=== PATIENT | female | born 1950 | race Caucasian/White ===

== ENCOUNTER 2018-06-01 16:00 | Emergency (ER) | payer BC, OTHER ==
--- NOTE | 2018-06-01 16:20 | PDOC ---
History of Present Illness - General History Source: Patient Exam Limitations: No Limitations - History of Present Illness Initial Comments: 68 yo F w a pmh of HCL presents to the ER after scraping the tip of her right pointer finger with a kitchen knife when she was preparing food in the kitchen. She came to the ER because she couldn't get it to stop bleeding after a few minutes. She has not had her tetanus updated in the past ten years. She states she has full strength, sensation, and range of motion in her finger. Denies fevers, chills, infections, headache, blurry vision, weakness, numbness, tingling, chills, n/v/d/c, cp, sob, dysuria, freq, urgency, abd or back pain. PCP: Daryl reynolds PSH: Eye surgery as an infant Allergies: Latex, feta cheese Social Hx: Denies smoking, drinking, or other substance usage. <Srinivasan Huddleston - Last Filed: 06/01/18 17:15> <Linn Noriega - Last Filed: 06/01/18 17:17> - General Chief Complaint: Laceration Stated Complaint: LEFT MIDDLE FINGER CUT Time Seen by Provider: 06/01/18 16:19 Past History <Srinivasan Huddleston - Last Filed: 06/01/18 17:15> <Linn Noriega - Last Filed: 06/01/18 17:17> - Past Medical History Allergies/Adverse Reactions: Allergies Allergy/AdvReac Type Severity Reaction Status Date / Time latex Allergy Mild Verified 06/01/18 16:14 FETA CHEESE Allergy Unknown Uncoded 06/01/18 16:14 Home Medications: Ambulatory Orders Atorvastatin Ca [Lipitor] 10 mg PO HS 06/01/18 Calcium Carbonate/Vitamin D3 [Calcium 600 + Vit D Tablet] 1 each PO DAILY Multivit-Min/Iron/Folic/Lutein [Centrum Silver Women Tablet] 1 each PO DAILY 01/09 Tensed-3/Dha/Epa/Fish Oil [Fish Oil Conc 1,000 mg Softgel] 1,000 mg PO DAILY 01/09 Review of Systems - Review of Systems Able to Perform ROS?: Yes Comments:: CONSTITUTIONAL: Absent: fever, no chills, no fatigue EYES: Absent: visual changes ENT: Absent: ear pain, no sore throat CARDIOVASCULAR: Absent: chest pain, no palpitations RESPIRATORY: Absent: cough, no SOB GI: Absent: abdominal pain, no nausea, no vomiting, no constipation, no diarrhea GENITOURINARY: Absent: dysuria, no frequency, no hematuria MUSKULOSKELETAL: Absent: back pain, no arthralgia, no myalgia SKIN: Absent: rash NEURO: Absent: headache <Srinivasan Huddleston - Last Filed: 06/01/18 17:15> *Physical Exam - Physical Exam Comments: RIGHT 2ND FINGER: There is a small 1x1 cm abrasion with active bleeding and the abrasion is TTP. Patient has full sensation, strength, and ROM. No neurovascular deficits. GENERAL: Well-appearing, well-nourished. No apparent distress. HEENT: Normocephalic, atraumatic. PERRL, EOM intact. CARDIOVASCULAR: Normal S1, S2. Regular rate and rhythm. PULMONARY: No evidence of respiratory distress. Lungs clear to auscultation bilaterally. No wheezing, rales or rhonchi. ABDOMEN: Soft, non-distended, non-tender. EXTREMITIES: Normal ROM in all four extremities. SKIN: Warm, dry. No rash NEUROLOGICAL: No focal neurological deficits. <Srinivasan Huddleston - Last Filed: 06/01/18 17:15> - Vital Signs Last Vital Signs Temp Pulse Resp BP Pulse Ox 98.0 F 70 16 114/90 100 06/01/18 16:13 06/01/18 16:13 06/01/18 16:13 06/01/18 16:13 06/01/18 16:13 <Linn Noriega - Last Filed: 06/01/18 17:17> Moderate Sedation - Procedure Monitoring Vital Signs: Procedure Monitoring Vital Signs Temperature 98.0 F 06/01/18 16:13 Pulse Rate 70 06/01/18 16:13 Respiratory Rate 16 06/01/18 16:13 Blood Pressure 114/90 06/01/18 16:13 O2 Sat by Pulse Oximetry (%) 100 06/01/18 16:13 <Linn Noriega - Last Filed: 06/01/18 17:17> Procedures - Laceration/Wound Repair Left Finger Wound Length: to 2.5 cm Wound Explored: clean Wound's Depth, Shape: superficial Irrigated w/ Saline: Yes Betadine Prep: No Wound Debrided: minimal Wound Repaired With: Dermabond Layer Closure: No Sterile Dressing Applied: Yes (bandaid) Splint Applied: No <NoriegaLinn Agnes - Last Filed: 06/01/18 17:17> ED Treatment Course - Medications Given in the ED: ED Medications Discontinued Medications Generic Name Dose Route Start Last Admin Trade Name Freandrea PRN Reason Stop Dose Admin Diphtheria/Tetanus/Acell Pertussis 0.5 ml 06/01/18 16:28 06/01/18 16:55 Boostrix - IM 06/01/18 16:29 0.5 ml .ONCE ONE Administration <LeannLinn Agnes - Last Filed: 06/01/18 17:17> Medical Decision Making - Medical Decision Making 68 yo F w a pmh of HCL presents to the ER after scraping the tip of her right pointer finger with a kitchen knife when she was preparing food in the kitchen. She came to the ER because she couldn't get it to stop bleeding after a few minutes. She has not had her tetanus updated in the past ten years. She states she has full strength, sensation, and range of motion in her finger. - VSS DDx IBNLT: Lac vs abrasion, tetanus, cellulitis, neurodeficit. Plan: Surgicell to achieve hemostat, update tetanus, Dermabond, DC. <Srinivasan Huddleston - Last Filed: 06/01/18 17:15> *DC/Admit/Observation/Transfer - Discharge Dispostion Decision to Admit order: No <Srinivasan Huddleston - Last Filed: 06/01/18 17:15> <Linn Noriega - Last Filed: 06/01/18 17:17> Diagnosis at time of Disposition: Abrasion - Discharge Dispostion Disposition: HOME Condition at time of disposition: Good - Referrals Referrals: Daryl Torre [Primary Care Provider] - - Patient Instructions Printed Discharge Instructions: DI for Laceration Repair With Dermabond, DI for Abrasion Additional Instructions: You came into the ER with an abrasion. We used dermabond to stop the bleeding. Come back to the ER if you start to experience any signs of infection such as pain, fevers, redness, chills, or any other new or worsening concerns. Make sure to schedule a follow up Appt with your PCP in the next 3 to 5 days to make sure your wound is getting better and you are being taken care of. Thank you for coming to the [facility] ED. We hope you feel better soon! Print Language: TAMAZIGHT - Post Discharge Activity
--- NOTE | 2018-06-01 16:25 | PDOC ---
Attending Attestation - Resident Resident Name: KrystenbarbaraSrinivasan - ED Attending Attestation I have performed the following: I have examined & evaluated the patient, The case was reviewed & discussed with the resident, I agree w/resident's findings & plan - HPI HPI: 06/01/18 16:24 68 YOF presenting with left middle finger superficial avulsion of skin while cutting carrots with sharp knife bleeding noted, +compression on with gauze with some improvement. no pain, weakness or paresthesias. Tdap last <9 years ago. 06/01/18 16:55 - Physicial Exam PE: 06/01/18 17:12 General: NAD, well appearing Vascular: 2+ radialis pulses symmetric and equal. Neuro: distal heddler strength 5/5. sensation grossly intact in median/radial/ ulnar distribution. MSK: soft compartments, Cap refill <2 sec. 2+ radialis pulses bilaterally and symmetric. FDP/FDS intact. no joint tenderness. FROM. Skin: color normal color, warm and well perfused. left middle finger distal pulp with superficial skin avulsion, +triangular shaped, mild bleeding - Medical Decision Making 06/01/18 17:13 hpi as documented, VS wnl. reviewed. tetanus up dated area compressed, then applied surgicel with continued bleeding. then put on a small tourniquet, applied topical dermabond with improvement. area clean and dry , NVI. expectant management should fall off in 1 week. wound care instructions provided, monitor for fever/chills, redness, pain , swelling, malodor, s/s infection. no abx to dermabonded area. maintain bandaid to cover area.. Pt to be discharged in stable condition. Patient and family made aware of impression and plan, return precautions discussed (including but not limited to worsening pain or symptoms), fevers, or signs of infection, chest pain, respiratory distress, inability to tolerate oral intake, dehydration, syncope, or neurologic changes). Follow up with PMD and/or specialist as recommended, follow up information provided, take medications as instructed for duration of time. continue with supportive care, avoid triggers and precipitants. Patient does not suffer from an acute life-threatening medical condition at this time she is safe for outpatient follow-up.
[2018-06-01 16:28] VITALS: BP 114/90; PULSE 70; TEMP 98; BMI 22.1
[2018-06-01] MEDS ORDERED: DIPHTH,PERTUSS(ACELL),TET 0.5 ML DISP.SYRIN IM ONE ×2 (16:28→16:47)
== END 2018-06-01 17:19 | disposition home or self-care (01) ==
LOC: FER 16:00
PROC: 3E0234Z Introduction of Serum, Toxoid and Vaccine into Muscle, Percutaneous Approach (ICD-10-PCS; principal; 2018-06-01)
PROC: 0HQGXZZ Repair Left Hand Skin, External Approach (ICD-10-PCS; 2018-06-01)
DX: S61.213A Laceration without foreign body of left middle finger without damage to nail, initial encounter (principal); W26.0XXA Contact with knife, initial encounter; Y93.G1 Activity, food preparation and clean up; Y92.89 Other specified places as the place of occurrence of the external cause
CPT/HCPCS: 90715; 99281-25

== ENCOUNTER 2019-12-17 13:52 | Emergency (ER) | payer OTHER, BC ==
[2019-12-17 13:59] VITALS: BP 125/68; PULSE 55; TEMP 97; BMI 22.9
[2019-12-17] MEDS ORDERED: DIPHTH,PERTUSS(ACELL),TET 0.5 ML DISP.SYRIN IM ONE ×2 (14:50→14:51)
--- NOTE | 2019-12-17 15:00 | PDOC ---
History of Present Illness - General Chief Complaint: Injury Stated Complaint: SLIP AND FALL Time Seen by Provider: 12/17/19 14:09 History Source: Patient Exam Limitations: No Limitations - History of Present Illness Initial Comments: 12/17/19 15:00 Patient is a 69-year-old female with a history of hyperlipidemia presents to the ED after a trip and fall while going for a walk with her earlier today. Patient states that she tripped over uneven pavement and landed on her bilateral hands and knees, and hitting her chin on the ground. She denies any LOC. She remembers the entire fall. She denies any visual changes, numbness, tingling, dizziness, chest pain, shortness of breath. She denies any anticoagulation. The patient is unsure of her last tetanus booster. Past History - Medical History Allergies/Adverse Reactions: Allergies Allergy/AdvReac Type Severity Reaction Status Date / Time latex Allergy Mild Verified 12/17/19 13:59 FETA CHEESE Allergy Unknown Uncoded 12/17/19 13:59 Home Medications: Ambulatory Orders Atorvastatin Ca [Lipitor] 10 mg PO HS 06/01/18 Calcium Carbonate/Vitamin D3 [Calcium 600 + Vit D Tablet] 1 each PO DAILY 06/01/18 Multivit-Min/Iron/Folic/Lutein [Centrum Silver Women Tablet] 1 each PO DAILY 06/01/18 [place]-3/Dha/Epa/Fish Oil [Fish Oil Conc 1,000 mg Softgel] 1,000 mg PO DAILY 06/01/18 COPD: No - Psycho-Social/Smoking History Smoking History: Never smoked - Substance Abuse Hx (Audit-C & DAST Scrn) How often the patient has a drink containing alcohol: Never Score: In Men: 4 or > Positive; In Women: 3 or > Positive: 0 Screen Result (Pos requires Nsg. Audit-10AR): Negative Review of Systems - Review of Systems Comments:: 12/17/19 14:59 - Review of Systems Able to Perform ROS?: Yes Constitutional: No: Fever, Chills, Loss of Appetite, Night Sweats, Weakness HEENTM: No: Eye Pain, Vision changes, Ear Pain, Throat Pain, Throat Swelling, Mouth Pain, Difficulty Swallowing; positive: Chin laceration, positive bilateral TMJ pain Respiratory: No: Cough, Shortness of Breath, Wheezing, Sputum Production Cardiac (ROS): No: Chest Pain, Chest Tightness, Palpitations, Irregular Heart Beat, Edema ABD/GI: No: Nausea, Vomiting, Abdominal Pain, Diarrhea : No Dysuria, No Hematuria, No Frequency, No Urgency, No Vaginal Discharge/Pain, No Penile Discharge/Pain Musculoskeletal: No: Muscle Pain, Back Pain, Joint Pain, Muscle Weakness, Neck Pain; positive: Right knee pain and abrasion Integumentary: No: Lesions, Rash; positive: Multiple abrasions Neurological: No: Headache, Numbness, Tingling, Weakness, Speech Difficulties; positive: Minor head injury *Physical Exam - Vital Signs Last Vital Signs Temp Pulse Resp BP Pulse Ox 97 F L 55 L 18 125/68 99 12/17/19 13:54 12/17/19 13:54 12/17/19 13:54 12/17/19 13:54 12/17/19 13:54 - Physical Exam 12/17/19 14:57 - Physical Exam General Appearance: Nourished, Appropriately Dressed, No Distress HEENT: EOMI, Normal Voice, No Pharyngeal Erythema, No Muffled/Hoarse voice, No Tonsillar Exudate, No Tonsillar Erythema, No Nasal Congestion, No Rhinorrhea, Hearing Grossly Normal, TMs Normal, No TM Bulging, No TM Dullness, No TM Eryth vamshi; 2 cm irregular gaping laceration of the chin with minimal active bleeding. No sign of foreign body. Tenderness over the bilateral TMJ to palpation with opening and closing the jaw. No septal hematoma or hemotympanum appreciated. EOMI without pain bilaterally. No denney sign or raccoon eyes appreciated Neck: Supple, No Lymphadenopathy (R), No Lymphadenopathy (L), No Rigidity, No Decreased range of motion Respiratory/Chest: Lungs Clear, Normal Breath Sounds. No Respiratory Distress, No Accessory Muscle Use Cardiovascular: Regular Rhythm, Regular Rate, S1, S2 Gastrointestinal/Abdominal: Normal Bowel Sounds, Soft. Non-tender, No Guarding, No Rebound, No Rigidity Musculoskeletal: Normal Inspection. No Decreased Range of Motion; right knee tenderness to palpation, full range of motion. Patient able to straight leg raise. No step-off appreciated. Abrasion overlying the right knee. Extremity: Normal Capillary Refill, Normal Inspection Integumentary: Normal Color, Dry. No Rash; abrasion to the right palm appreciated. Neurologic: ui ux web developer II-XII NML intact, Fully Oriented, Alert, Normal Mood/Affect, Normal Response Procedures - Laceration/Wound Repair Face Wound Length: to 2.5 cm Wound Explored: clean Wound's Depth, Shape: superficial, irregular (gaping) Irrigated w/ Saline: Yes Betadine Prep: Yes Anesthesia: 1% Lidocaine Amount of Anesthetic (ccs): 3 Wound Debrided: minimal Wound Repaired With: Sutures Suture Size/Type: 4:0 Number of Sutures: 6 Layer Closure: No Sterile Dressing Applied: Yes ED Treatment Course - RADIOLOGY Radiology Studies Ordered: Category Date Time Status FACIAL BONES CT W/O CONTRAST [CT] Stat CT Scan 12/17/19 14:[address] WITHOUT CONTRAST [CT] Stat CT Scan 12/17/19 14:50 Ordered KNEE 3 POS-RIGHT [RAD] Stat Radiology 12/17/19 14:51 Ordered - Medications Given in the ED: ED Medications Discontinued Medications Generic Name Dose Route Start Last Admin Trade Name Freq PRN Reason Stop Dose Admin Diphtheria/Tetanus/Acell Pertussis 0.5 ml 12/17/19 14:50 12/17/19 14:51 Boostrix - IM 12/17/19 14:51 0.5 ml .ONCE ONE Administration Medical Decision Making - Medical Decision Making 12/17/19 14:56 Assessment: Patient is a 69-year-old female with a trip and fall while taking a walk earlier, she sustained a chin laceration, multiple abrasions and has right knee pain. Plan: -Head CT ordered -Facial bone CT ordered -Suture repair of chin laceration performed -Tetanus booster ordered -Right knee x-ray ordered -Will reassess 12/17/19 17:[address] is negative for acute pathology. Her maxillofacial CT shows a possible fracture of the left mandibular condyle. The patient states her bite feels slightly off but not entirely. She does have pain with opening and closing her mouth. I have spoken with Dr. Jairo Henriquez of [facility] at [facility] who states that the patient can be evaluated in his office on Monday 12/18 at 11 AM for further evaluation. He suggests that the patient eat a soft food diet until then. She can take Tylenol or ibuprofen for pain. I have made the patient aware of these findings and she understands and agrees with this treatment and plan. The patient is stable for discharge and will be given Dr. Jairo Henrqiuez's information for follow-up. She is also been given wound care instructions for her laceration of her chin. Martinez Gill [facility] [address], [place] [address] Discharge - Discharge Information Problems reviewed: Yes Clinical Impression/Diagnosis: Abrasion, right knee, initial encounter, Abrasion of right hand, initial encounter Chin laceration Qualifiers: Encounter type: initial encounter Qualified Code(s): S01.81XA - Laceration without foreign body of other part of head, initial encounter Mandible fracture Qualifiers: Encounter type: initial encounter Fracture type: closed Mandible location: subcondylar process Laterality: left Qualified Code(s): S02.622A - Fracture of subcondylar process of left mandible, initial encounter for closed fracture Minor head injury Qualifiers: Encounter type: initial encounter Qualified Code(s): S09.90XA - Unspecified injury of head, initial encounter Condition: Stable Disposition: HOME - Follow up/Referral Referrals: Marilu Chambers MD [Primary Care Provider] - - Patient Discharge Instructions Patient Printed Discharge Instructions: DI for Laceration Repair, DI for Closed Head Injury, Skull and Facial Fracture, DI for Abrasion Additional Instructions: You are to follow-up with Dr. Jairo Henriquez of [facility] on 12/19/2019 at 11 AM. His contact information is below. Martinez Gill DDS [address], [place] [address] Eat a soft food diet for the next several days. Take Tylenol or ibuprofen for pain. Keep your chin laceration clean and dry for the next 24 hours. After 24 hours you can wash the wound once daily with warm water and soap. You can keep the laceration uncovered while home and resting. You should cover the wound while away from home. You do not have any fractures of your right knee so you can continue to weight-bear as tolerated. Avoid any strenuous activity or heavy lifting. - Post Discharge Activity
== END 2019-12-17 17:24 | disposition home or self-care (01) ==
LOC: JERFT 13:52
PROC: 0JQ10ZZ Repair Face Subcutaneous Tissue and Fascia, Open Approach (ICD-10-PCS; principal; 2019-12-17)
PROC: 3E0234Z Introduction of Serum, Toxoid and Vaccine into Muscle, Percutaneous Approach (ICD-10-PCS; 2019-12-17)
DX: S80.211A Abrasion, right knee, initial encounter (principal); S60.511A Abrasion of right hand, initial encounter; S01.81XA Laceration without foreign body of other part of head, initial encounter; S02.622A Fracture of subcondylar process of left mandible, initial encounter for closed fracture; S09.90XA Unspecified injury of head, initial encounter
CPT/HCPCS: 70450-TC; 70486-TC; 73562-TC-RT-FY; 90715; 99284-25

== ENCOUNTER 2022-02-22 07:56 | Day surgery (SDC) | payer OTHER, BC ==
[2022-02-20 11:40] VITALS: BMI 24.0
[2022-02-22 09:59] VITALS: RESP 18
[2022-02-22 10:01] VITALS: BP 114/77; PULSE 88; TEMP 97.8
== END 2022-02-22 10:15 | disposition home or self-care (01) ==
LOC: FASU-ENDO 07:56
PROVIDERS: ATTEND Internal Medicine Gastroenterology
PROC: 0DBN8ZX Excision of Sigmoid Colon, Via Natural or Artificial Opening Endoscopic, Diagnostic (ICD-10-PCS; 2022-02-22)
PROC: 0DBK8ZX Excision of Ascending Colon, Via Natural or Artificial Opening Endoscopic, Diagnostic (ICD-10-PCS; principal; 2022-02-22 09:04)
DX: Z12.11 Encounter for screening for malignant neoplasm of colon (principal); Z86.010 Personal history of colon polyps; D12.5 Benign neoplasm of sigmoid colon; K63.5 Polyp of colon; K57.30 Diverticulosis of large intestine without perforation or abscess without bleeding; K64.0 First degree hemorrhoids
CPT/HCPCS: 88305-TC